=== PATIENT | female | born 1985 | race African-American/Black ===

== ENCOUNTER 2019-12-17 10:11 | Emergency (ER) | payer OTHER ==
[~2019-12-17] VITALS: Ht 157.5 cm; Wt 108.9 kg
[2019-12-17] MEDS ORDERED: NOHOMEMEDICATIONS (10:42)
[2019-12-17] MEDS ORDERED: PEPCID AC20 MG PO (11:33)
[2019-12-17] MEDS ORDERED: KEFLEX500 M1 PO (11:33)
[2019-12-17] MEDS ORDERED: PREDNISONE 20 M20 M1 PO (11:33)
[2019-12-17 11:57] VITALS: BP 124/72
== END 2019-12-17 11:59 | disposition home or self-care (01) ==
LOC: ER 10:11
DX: T78.49XA Other allergy, initial encounter (principal); Z88.0 Allergy status to penicillin; W57.XXXA Bitten or stung by nonvenomous insect and other nonvenomous arthropods, initial encounter